=== PATIENT | female | born 1990 | race Caucasian/White ===

== ENCOUNTER 2018-05-24 08:19 | Emergency (ER) | payer BC, MEDICARE ==
[~2018-05-24] VITALS: Ht 157.5 cm; Wt 81.6 kg
[2018-05-24 08:30] VITALS: BP_SYST 151
--- NOTE | 2018-05-24 08:52 | NUR ---
Patient to ER bed 7 to gown for evaluation. Side rails up.
--- NOTE | 2018-05-24 08:54 | NUR ---
ER Dr. Cerrato at bedside examining patient.
--- NOTE | 2018-05-24 08:55 | NUR ---
# 20 gauge angiocath placed to LAC. Use of asceptic technique. Opsite placed over site. Blood return noted. Blood for lab drawn from site. Flushed with 10 cc of normal saline. No evidence of infiltration noted. Patient tolerated well.
--- NOTE | 2018-05-24 09:00 | NUR ---
Pt presents to ER c/o LUQ abdominal pain that radiates to back that began around 0400 today. Pt rates pain 8/10 on pain scale, reports nausea but denies vomiting. Pt also reports that she is 15 weeks . Urine test +. Pt in no acute distress, speaking full sentences, respirations even and unlabored, speaking full sentences, AOX4, family at bedside.
[2018-05-24 09:07] LABS: BILIRUBIN,URINE NEGATIVE (NEGATIVE); BLOOD, URINE 3+ (NEGATIVE); CLARITY/URINE SL HAZY (CLEAR); COLOR,URINE YELLOW (YELLOW); GLUCOSE,URINE NEGATIVE (NEGATIVE); KETONES,URINE NEGATIVE (NEGATIVE); LEUKOCYTE ESTERASE ,URINE 1+ (NEGATIVE); NITRITE, URINE NEGATIVE (NEGATIVE); PROTEIN URINE NEGATIVE (NEGATIVE); UROBILINOGEN,URINE 0.2 (0.2-1.0)
[2018-05-24 09:30] LABS: BACTERIA,URINE FEW /HPF (None Seen); RBC,URINE 20-50 /HPF (0-3)
[2018-05-24 09:31] LABS: MUCUS,URINE 1+ /LPF (None Seen)
[2018-05-24 10:35] VITALS: BP_SYST 136
--- NOTE | 2018-05-24 10:35 | NUR ---
Patient given written and verbal discharge instructions and verbalizes understanding. ER MD discussed with patient the results and treatment provided. Patient in stable condition. ID arm band removed. IV catheter removed intact and dressing applied, no active bleeding. Rx of Macrodantin given. Patient educated on pain management and to follow up with PMD. Pain Scale 0. Opportunity for questions provided and answered. Medication side effect fact sheet provided.
== END 2018-05-24 08:52 | disposition home or self-care (01) ==
LOC: SED 08:19
DX: O23.42 Unspecified infection of urinary tract in pregnancy, second trimester (principal); Z3A.15 15 weeks gestation of pregnancy; Z88.2 Allergy status to sulfonamides; Z88.8 Allergy status to other drugs, medicaments and biological substances
CPT/HCPCS: 81000-TC; 81025; 87086; 99284

== ENCOUNTER 2018-10-31 00:50 | Inpatient (IN) | payer BC, MEDICARE ==
[~2018-10-31] VITALS: Ht 157.5 cm; Wt 84.4 kg
[2018-10-31] MEDS ORDERED: LR 1,000 ML IV SCH (05:12)
[2018-10-31] MEDS ORDERED: NALBUPHINE HCL 10 MG/ML AMP IVP PRN (05:15)
[2018-10-31] MEDS ORDERED: TERBUTALINE SULFATE 1 MG/ML VIAL SUBCUT ONE (05:15)
[2018-10-31 05:26] VITALS: BP_SYST 128
[2018-10-31] MEDS ORDERED: MAGNESIUM SULFATE IN WATER 100 ML IV ONE ×2 (05:30→05:36)
[2018-10-31 05:36] LABS: HEMATOCRIT 30.8 % (36-48); HEMOGLOBIN 10.1 g/dL (12.0-16.0); MEAN CORPUSCULAR HEMOGLOBIN 25 pg (27-31); MEAN CORPUSCULAR HGB CONC 33 % (32-36); MEAN CORPUSCULAR VOLUME 77 fL (79.0-98.0); PLATELET COUNT (AUTO) 223 K/uL (130-430); RED CELL DISTRIBUTION WIDTH 14.6 % (9.0-15.0); WHITE BLOOD COUNT (AUTO) 6.6 K/uL (4.8-10.8)
[2018-10-31] MEDS ORDERED: MAGNESIUM SULFATE IN WATER 500 ML IV ONE (05:36)
[2018-10-31 05:37] LABS: BASOPHILS % (AUTO) 0.4 % (0.0-2.0); EOSINOPHILS # (AUTO) 0.1 K/uL (0.0-0.4); EOSINOPHILS % (AUTO) 0.8 % (0.0-4.0); LYMPHOCYTES # (AUTO) 2.1 K/uL (1.0-5.5); LYMPHOCYTES % (AUTO) 31.6 % (20.5-51.5); MONOCYTES # (AUTO) 0.4 K/uL (0.0-1.0); MONOCYTES % (AUTO) 6.6 % (1.7-9.3); NEUTROPHILS % (AUTO) 60.6 % (40.0-70.0)
[2018-10-31 05:48] LABS: CALCIUM 8.1 mg/dL (8.4-11.0); CREATININE 0.49 mg/dL (0.55-1.30); POTASSIUM 3.7 mmol/L (3.5-5.1)
[2018-10-31 05:53] LABS: ALBUMIN 2.3 g/dL (3.4-4.8); TOTAL BILIRUBIN 0.2 mg/dL (0.0-1.0); URIC ACID 4.3 mg/dL (2.4-7.0)
[2018-10-31 06:23] LABS: INR 0.9 (0.8-1.2); PROTHROMBIN TIME 9.6 SECS (9.5-12.5)
[2018-10-31] MEDS: OXYTOCIN/0.9 % SODIUM CHLORIDE 1,000 ML IV SCH ×2 (06:30→16:45)
[2018-10-31 07:10] LABS: BILIRUBIN,URINE NEGATIVE (NEGATIVE); BLOOD, URINE NEGATIVE (NEGATIVE); CLARITY/URINE SL HAZY (CLEAR); COLOR,URINE YELLOW (YELLOW); GLUCOSE,URINE NEGATIVE (NEGATIVE); KETONES,URINE TRACE (NEGATIVE); LEUKOCYTE ESTERASE ,URINE NEGATIVE (NEGATIVE); NITRITE, URINE NEGATIVE (NEGATIVE); PROTEIN URINE TRACE (NEGATIVE); UROBILINOGEN,URINE 0.2 (0.2-1.0)
[2018-10-31 07:45] LABS: BACTERIA,URINE MODERATE /HPF (None Seen); WBC,URINE 0-3 /HPF (0-3)
[2018-10-31 07:46] LABS: MUCUS,URINE 1+ /LPF (None Seen)
[2018-10-31] MEDS ORDERED: fentaNYL CITRATE/PF 100 MCG/2 ML AMP ONE (09:00)
[2018-10-31] MEDS ORDERED: ROPIVACAINE 0.2% 100 ML ONE (09:01)
[2018-10-31] MEDS: MAGNESIUM SULFATE IN WATER 500 ML IV PRN (16:48)
[2018-10-31] MEDS ORDERED: LR 500 ML IV ONE (17:50)
[2018-10-31] MEDS ORDERED: FENT2mCg/mL-ROPIVA0.2%/NS EPID 150 ML EP SCH (18:00)
[2018-10-31] MEDS ORDERED: OXYTOCIN/0.9 % SODIUM CHLORIDE 1,000 ML IV ONE (19:44)
[2018-10-31] MEDS ORDERED: METHYLERGONOVINE MALEATE 0.2 MG TABLET PO PRN (19:45)
[2018-10-31] MEDS: LABETALOL HCL 100 MG TABLET PO SCH (20:00)
[2018-10-31] MEDS: IBUPROFEN 600 MG TABLET PO SCH (20:00)
[2018-10-31] MEDS ORDERED: LANOLIN 7 GM OINT. TP PRN (20:15)
[2018-10-31] MEDS ORDERED: TEMAZEPAM 15 MG CAPSULE PO PRN (21:00)
[2018-10-31] MEDS ORDERED: OXYCODONE/ACETAMINOPHEN 5-325 TABLET PO PRN ×2 (21:15)
[2018-11-01] MEDS: IBUPROFEN 600 MG TABLET PO SCH ×4 (00:06→18:13)
[2018-11-01] MEDS: DOCUSATE SODIUM 100 MG CAPSULE PO PRN ×2 (00:07→05:47)
[2018-11-01] MEDS: MAGNESIUM SULFATE IN WATER 500 ML IV PRN (05:06)
[2018-11-01 08:23] LABS: HEMATOCRIT 27.4 % (36-48)
[2018-11-01] MEDS: LABETALOL HCL 100 MG TABLET PO SCH ×2 (09:34→21:32)
[2018-11-02] MEDS: DOCUSATE SODIUM 100 MG CAPSULE PO PRN (02:30)
[2018-11-02] MEDS: IBUPROFEN 600 MG TABLET PO SCH ×4 (06:47→23:33)
[2018-11-02] MEDS: LABETALOL HCL 100 MG TABLET PO SCH (11:00)
== END 2018-11-02 23:40 | disposition home or self-care (01) | DRG 560 ==
LOC: OBSVTOIN 00:50 → SPU 00:50 → SMU 11-02 12:24 → SPU 11-02 20:42
PROVIDERS: ADMIT Obstetrics & Gynecology; ATTEND Obstetrics & Gynecology
PROC: 10E0XZZ Delivery of Products of Conception, External Approach (ICD-10-PCS; principal; 2018-10-31)
PROC: 3E0R3BZ Introduction of Anesthetic Agent into Spinal Canal, Percutaneous Approach (ICD-10-PCS; 2018-10-31)
PROC: 00HU33Z Insertion of Infusion Device into Spinal Canal, Percutaneous Approach (ICD-10-PCS; 2018-10-31)
DX: O13.4 Gestational [pregnancy-induced] hypertension without significant proteinuria, complicating childbirth (principal); O69.81X0 Labor and delivery complicated by cord around neck, without compression, not applicable or unspecified; Z37.0 Single live birth; Z3A.38 38 weeks gestation of pregnancy
CPT/HCPCS: 36415; 80053; 81000-TC; 81002-TC; 84550-TC; 85018-TC; 85025; 85384-TC; 85610-TC; 85730-TC; 86592; 86886; 86900; 86901; 94760; J2590; J2795; J3010; J3475; J7120

== ENCOUNTER 2019-09-09 21:04 | Emergency (ER) | payer BC, MEDICAID ==
[~2019-09-09] VITALS: Ht 160 cm; Wt 86.2 kg
[2019-09-09 21:04] VITALS: BP_SYST 150
[2019-09-09 22:21] LABS: BILIRUBIN,URINE NEGATIVE (NEGATIVE); BLOOD, URINE 2+ (NEGATIVE); CLARITY/URINE CLEAR (CLEAR); COLOR,URINE YELLOW (YELLOW); GLUCOSE,URINE NEGATIVE (NEGATIVE); KETONES,URINE NEGATIVE (NEGATIVE); LEUKOCYTE ESTERASE ,URINE NEGATIVE (NEGATIVE); NITRITE, URINE NEGATIVE (NEGATIVE); PH,URINE 6.5 (5.0-8.0); PROTEIN URINE NEGATIVE (NEGATIVE); UROBILINOGEN,URINE 0.2 (0.2-1.0)
[2019-09-09 22:27] LABS: BACTERIA,URINE FEW /HPF (None Seen); MUCUS,URINE None Seen /LPF (None Seen); WBC,URINE 0-3 /HPF (0-3)
[2019-09-09 23:28] LABS: BASOPHILS % (AUTO) 0.5 % (0.0-2.0); EOSINOPHILS % (AUTO) 1.3 % (0.0-4.0); HEMATOCRIT 39.1 % (36-48); HEMOGLOBIN 12.9 g/dL (12.0-16.0); LYMPHOCYTES # (AUTO) 1.3 K/uL (1.0-5.5); MEAN CORPUSCULAR HEMOGLOBIN 27 pg (27-31); MEAN CORPUSCULAR HGB CONC 33 % (32-36); MEAN CORPUSCULAR VOLUME 83 fL (79.0-98.0); MONOCYTES # (AUTO) 0.5 K/uL (0.0-1.0); MONOCYTES % (AUTO) 11.9 % (1.7-9.3); NEUTROPHILS % (AUTO) 53.3 % (40.0-70.0); PLATELET COUNT (AUTO) 213 K/uL (130-430); RED BLOOD CELL COUNT(AUTO) 4.73 MIL/uL (4.2-6.2); RED CELL DISTRIBUTION WIDTH 14.5 % (9.0-15.0); WHITE BLOOD COUNT (AUTO) 3.8 K/uL (4.8-10.8)
[2019-09-09 23:34] LABS: CALCIUM 8.3 mg/dL (8.4-11.0); CREATININE 0.58 mg/dL (0.55-1.30); POTASSIUM 3.5 mmol/L (3.5-5.1)
--- NOTE | 2019-09-10 02:41 | NUR ---
Patient to ER bed 3 to gown for evaluation. Side rails up.
--- NOTE | 2019-09-10 02:45 | NUR ---
Pt came to the ED for vaginal bleeding since 1999. Reports she has been wearing the same pad since bleeding started. LMP was 04/29/19. Reports she has cramping but she is unsure if it is related to the body aches she has been experiences. Pt states her kids have been sick with the flu at home. Reports she has been having body aches, fever, congestion and chills since 10/07/18. Denies n/v/d. Denies SOB or chest pain. No other complaints/injuries noted. Will cont. to monitor
--- NOTE | 2019-09-10 02:50 | NUR ---
ER at bedside examining patient.
--- NOTE | 2019-09-10 03:00 | NUR ---
Dr. Lozano at bedside for pelvic exam with myself as customer service advisor.
[2019-09-10] MEDS ORDERED: ACETAMINOPHEN 500 MG TABLET PO ONE (03:15)
[2019-09-10 03:39] LABS: BARBITURATE, URINE NEGATIVE (NEG <=200); BENZODIAZEPINE, URINE NEGATIVE (NEG <=150); CANNABINOID, URINE NEGATIVE (NEG <=50); COCAINE, URINE NEGATIVE (NEG <=150); METHAMPHETAMINES SCREEN,URINE NEGATIVE (NEG <=500); OPIATE, URINE NEGATIVE (NEG <=100); PHENCYCLIDINE SCREEN,URINE NEGATIVE (NEG <=25); UR TRICYCLIC ANTIDEPRESSANTS NEGATIVE (NEG <=300); URINE AMPHETAMINE POSITIVE (NEG <=500); URINE METHADONE NEGATIVE (NEG <=200); URINE OXYCODONE SCREEN NEGATIVE (NEG <=100); URINE PROPOXYPHENE SCREEN NEGATIVE (NEG <=300)
--- NOTE | 2019-09-10 03:50 | NUR ---
Dr. Lozano at bedside for re-assessing pelvic exam with speculum with myself as a training consultant.
--- NOTE | 2019-09-10 04:54 | NUR ---
ER at bedside discussing lab results to patient.
[2019-09-10 05:00] VITALS: BP_SYST 137
--- NOTE | 2019-09-10 05:00 | NUR ---
Patient given written and verbal discharge instructions and verbalizes understanding. ER MD Dr. Lozano discussed with patient the results and treatment provided. Patient in stable condition. ID arm band removed. Patient educated on pain management and to follow up with PMD. Pain Scale 0/10. Opportunity for questions provided and answered. Medication side effect fact sheet provided.
== END 2019-09-10 05:00 | disposition home or self-care (01) ==
LOC: SED 21:04
DX: O20.0 Threatened abortion (principal); D72.819 Decreased white blood cell count, unspecified; F15.90 Other stimulant use, unspecified, uncomplicated; I10 Essential (primary) hypertension; Z3A.01 Less than 8 weeks gestation of pregnancy; Z88.2 Allergy status to sulfonamides; Z88.8 Allergy status to other drugs, medicaments and biological substances
CPT/HCPCS: 36415; 76856-TC; 80048; 80307; 81000-TC; 84702-TC; 85025; 86710; 86900; 86901; 99284

== ENCOUNTER 2019-09-10 16:11 | Emergency (ER) | payer MEDICAID ==
[~2019-09-10] VITALS: Ht 160 cm; Wt 67.1 kg
[2019-09-10 16:12] VITALS: BP_SYST 146
[2019-09-10] MEDS ORDERED: NACL 0.9% 1,000 ML IV ONE (16:21)
--- NOTE | 2019-09-10 16:21 | NUR ---
Patient called for triage, not in waiting room. Admitting states she was just at their window, will check back.
--- NOTE | 2019-09-10 16:24 | NUR ---
Pt brought by self, A&Ox4, pt presents to ER with vaginal bleeding , states she is 6 weeks , pt was seen last night and was told to return if bleeding continues, per patient bleding is less than yesterday , changing 2 pads a day, skin pink and warm, cap refill <3, VSS, respirations even and unlabored.
--- NOTE | 2019-09-10 16:40 | NUR ---
Dr Aldana at bedside examining patient
[2019-09-10 17:20] LABS: CREATININE 0.61 mg/dL (0.55-1.30); POTASSIUM 3.1 mmol/L (3.5-5.1)
[2019-09-10 17:31] LABS: PROTHROMBIN TIME 9.9 SECS (9.5-12.5)
[2019-09-10 17:32] LABS: BILIRUBIN,URINE 1+ (NEGATIVE); BLOOD, URINE 3+ (NEGATIVE); CLARITY/URINE CLOUDY (CLEAR); GLUCOSE,URINE NEGATIVE (NEGATIVE); KETONES,URINE 1+ (NEGATIVE); LEUKOCYTE ESTERASE ,URINE TRACE (NEGATIVE); NITRITE, URINE NEGATIVE (NEGATIVE); PH,URINE 6.5 (5.0-8.0); PROTEIN URINE 1+ (NEGATIVE)
[2019-09-10 17:34] LABS: BASOPHILS % (AUTO) 0.4 % (0.0-2.0); EOSINOPHILS # (AUTO) 0.1 K/uL (0.0-0.4); EOSINOPHILS % (AUTO) 2.6 % (0.0-4.0); HEMATOCRIT 39.3 % (36-48); LYMPHOCYTES % (AUTO) 28.4 % (20.5-51.5); MEAN CORPUSCULAR HEMOGLOBIN 27 pg (27-31); MEAN CORPUSCULAR HGB CONC 33 % (32-36); MEAN CORPUSCULAR VOLUME 83 fL (79.0-98.0); MONOCYTES # (AUTO) 0.3 K/uL (0.0-1.0); MONOCYTES % (AUTO) 10.1 % (1.7-9.3); NEUTROPHILS % (AUTO) 58.5 % (40.0-70.0); PLATELET COUNT (AUTO) 206 K/uL (130-430); RED BLOOD CELL COUNT(AUTO) 4.76 MIL/uL (4.2-6.2); RED CELL DISTRIBUTION WIDTH 14.9 % (9.0-15.0); WHITE BLOOD COUNT (AUTO) 3.4 K/uL (4.8-10.8)
[2019-09-10 17:48] LABS: ALBUMIN 3.3 g/dL (3.4-4.8); TOTAL BILIRUBIN 0.3 mg/dL (0.0-1.0)
--- NOTE | 2019-09-10 17:55 | NUR ---
Pelvic exam performed by Dr Aldana with myself at bedside for entire examination. Patient tolerated procedure . Patient assisted to position of comfort after examination.
--- NOTE | 2019-09-10 17:55 | NUR ---
Shikha alcazar in ED - 09/10/19 at 1816 by [email or web address] Pelvic exam performed by patient with myself at bedside for entire examination. Patient tolerated procedure . Patient assisted to position of comfort after examination.
[2019-09-10 18:04] LABS: COLOR,URINE AMBER (YELLOW)
[2019-09-10 18:36] LABS: BACTERIA,URINE FEW /HPF (None Seen); RBC,URINE >100 /HPF (0-3)
[2019-09-10 18:37] LABS: MUCUS,URINE 2+ /LPF (None Seen)
[2019-09-10 18:45] VITALS: BP_SYST 142
--- NOTE | 2019-09-10 18:48 | NUR ---
Patient given written and verbal discharge instructions and verbalizes understanding. ER MD discussed with patient the results and treatment provided. Patient in stable condition. ID arm band removed. IV catheter removed intact and dressing applied, no active bleeding. No Rx given. Patient educated on pain management and to follow up with PMD. Pain Scale 0/10 . Opportunity for questions provided and answered. Medication side effect fact sheet provided.
== END 2019-09-10 18:45 | disposition home or self-care (01) ==
LOC: SED 16:11
DX: O20.0 Threatened abortion (principal); I10 Essential (primary) hypertension; Z88.8 Allergy status to other drugs, medicaments and biological substances; Z3A.01 Less than 8 weeks gestation of pregnancy
CPT/HCPCS: 36415; 80053; 81000; 83605; 83690; 84702; 85025; 85610; 85730; 86901; 87040; 87086; 99283; J7030

== ENCOUNTER 2020-07-09 13:45 | Outpatient (CLI) | payer BC, SELFPAY | END 2020-07-09 20:25 | disposition home or self-care (01) | LOC: SLB 13:45 | PROVIDERS: ATTEND Specialist | DX: Z20.828 Contact with and (suspected) exposure to other viral communicable diseases (principal) | CPT/HCPCS: C9803; U0003 ==

== ENCOUNTER 2020-07-14 00:05 | Inpatient (IN) | payer BC, SELFPAY ==
[~2020-07-14] VITALS: Ht 157.5 cm; Wt 83.9 kg
[2020-07-14] MEDS: hydrALAZINE HCL 10 MG TABLET PO SCH (21:15)
[2020-07-15] MEDS: hydrALAZINE HCL 10 MG TABLET PO SCH ×2 (08:54→21:00)
[2020-07-15] MEDS ORDERED: LR 1,000 ML IV ONE (19:15)
[2020-07-15] MEDS ORDERED: TERBUTALINE SULFATE 1 MG/ML VIAL SUBCUT ONE (19:15)
[2020-07-15] MEDS ORDERED: OXYTOCIN/0.9 % SODIUM CHLORIDE 1,000 ML IV SCH (19:15)
[2020-07-15 19:31] LABS: BASOPHILS % (AUTO) 0.2 % (0.0-2.0); EOSINOPHILS # (AUTO) 0.1 K/uL (0.0-0.4); EOSINOPHILS % (AUTO) 0.7 % (0.0-4.0); HEMATOCRIT 33.6 % (36-48); HEMOGLOBIN 11.1 g/dL (12.0-16.0); LYMPHOCYTES # (AUTO) 1.7 K/uL (1.0-5.5); LYMPHOCYTES % (AUTO) 20.3 % (20.5-51.5); MEAN CORPUSCULAR HEMOGLOBIN 25 pg (27-31); MEAN CORPUSCULAR HGB CONC 33 % (32-36); MEAN CORPUSCULAR VOLUME 77 fL (79.0-98.0); MONOCYTES # (AUTO) 0.6 K/uL (0.0-1.0); MONOCYTES % (AUTO) 6.7 % (1.7-9.3); NEUTROPHILS % (AUTO) 72.1 % (40.0-70.0); PLATELET COUNT (AUTO) 250 K/uL (130-430); RED BLOOD CELL COUNT(AUTO) 4.36 MIL/uL (4.2-6.2); RED CELL DISTRIBUTION WIDTH 15.9 % (9.0-15.0); WHITE BLOOD COUNT (AUTO) 8.3 K/uL (4.8-10.8)
[2020-07-15 21:06] VITALS: BP_SYST 123
[2020-07-15] MEDS ORDERED: hydrALAZINE HCL 10 MG TABLET ONE (21:26)
[2020-07-15] MEDS ORDERED: ACETAMINOPHEN 325 MG TABLET PO PRN (23:00)
[2020-07-15] MEDS ORDERED: ACETAMINOPHEN 325 MG TABLET ONE (23:19)
[2020-07-16] MEDS ORDERED: FENT2mCg/mL-ROPIVA0.2%/NS EPID 150 ML EP SCH (05:14)
[2020-07-16] MEDS ORDERED: fentaNYL CITRATE/PF 100 MCG/2 ML AMP ONE (05:14)
[2020-07-16] MEDS ORDERED: ROPIVACAINE HCL/PF 0.2% 200 ML ONE (05:15)
[2020-07-16] MEDS: LR 1,000 ML IV SCH ×2 (06:30→10:15)
[2020-07-16] MEDS: hydrALAZINE HCL 10 MG TABLET PO SCH ×3 (08:59→21:05)
[2020-07-16] MEDS ORDERED: LANOLIN 7 GM OINT. TP PRN (15:00)
[2020-07-16] MEDS ORDERED: WITCH HAZEL LEAF 1 MED.PAD MED.PAD TP PRN (15:00)
[2020-07-16] MEDS ORDERED: METHYLERGONOVINE MALEATE 0.2 MG TABLET PO PRN (15:00)
[2020-07-16] MEDS ORDERED: HYDROcodone/ACETAMIN 5-325 MG TAB (NORCO/ VICODIN) PO PRN (15:00)
[2020-07-16] MEDS ORDERED: RHO(D) IMMUNE GLOBULIN/MALTOSE 1500 UNITS/1.3 ML (WINHRO) IM PRN (15:00)
[2020-07-16] MEDS ORDERED: NALOXONE HCL 0.4 MG/ML AMP (NARCAN) IVP PRN (15:00)
[2020-07-16] MEDS ORDERED: SENNOSIDES/DOCUSATE SODIUM 1 TAB TABLET(SENOKOT-S) PO PRN (15:00)
[2020-07-16] MEDS ORDERED: DERMOPLAST SPRAY TP PRN (15:00)
[2020-07-16] MEDS ORDERED: ANUSOL 1 EA SUPP.RECT (PREPARATION H) RC PRN (15:00)
[2020-07-16] MEDS ORDERED: DIPH-TET-PERTUS Vaccine 0.5 ML VIAL (ADACEL) I.M. PRN (15:00)
[2020-07-16] MEDS ORDERED: OXYTOCIN/0.9 % SODIUM CHLORIDE 1,000 ML IV SCH (15:00)
[2020-07-16] MEDS ORDERED: MEASLES,MUMPS&RUBELLA VACC/PF 12500 UNIT/0.5 ML VIAL SUBQ PRN (15:00)
[2020-07-16] MEDS ORDERED: HYDROCORTISONE 0.5%, 28.35 GM TOPICAL CREAM TP PRN (15:00)
[2020-07-16] MEDS: DOCUSATE SODIUM 100 MG CAPSULE PO PRN ×2 (17:58→23:45)
[2020-07-16] MEDS: IBUPROFEN 600 MG TABLET PO SCH ×2 (17:58→23:45)
[2020-07-16] MEDS ORDERED: TEMAZEPAM 15 MG CAPSULE PO PRN (21:00)
[2020-07-16] MEDS: OXYCODONE/ACETAMINOPHEN 5-325 TABLET PO PRN (22:41)
[2020-07-17] MEDS: OXYCODONE/ACETAMINOPHEN 5-325 TABLET PO PRN ×4 (01:54→17:46)
[2020-07-17] MEDS: IBUPROFEN 600 MG TABLET PO SCH ×3 (06:09→12:24)
[2020-07-17] MEDS: DOCUSATE SODIUM 100 MG CAPSULE PO PRN (06:10)
[2020-07-17 06:42] LABS: BASOPHILS % (AUTO) 0.4 % (0.0-2.0); EOSINOPHILS # (AUTO) 0.1 K/uL (0.0-0.4); EOSINOPHILS % (AUTO) 1.2 % (0.0-4.0); HEMATOCRIT 29.2 % (36-48); HEMOGLOBIN 9.6 g/dL (12.0-16.0); LYMPHOCYTES # (AUTO) 2.7 K/uL (1.0-5.5); LYMPHOCYTES % (AUTO) 33.2 % (20.5-51.5); MEAN CORPUSCULAR HEMOGLOBIN 26 pg (27-31); MEAN CORPUSCULAR HGB CONC 33 % (32-36); MEAN CORPUSCULAR VOLUME 78 fL (79.0-98.0); MONOCYTES # (AUTO) 0.5 K/uL (0.0-1.0); MONOCYTES % (AUTO) 6.4 % (1.7-9.3); NEUTROPHILS # (AUTO) 4.8 K/uL (1.8-7.7); NEUTROPHILS % (AUTO) 58.8 % (40.0-70.0); PLATELET COUNT (AUTO) 208 K/uL (130-430); RED BLOOD CELL COUNT(AUTO) 3.75 MIL/uL (4.2-6.2); RED CELL DISTRIBUTION WIDTH 15.8 % (9.0-15.0); WHITE BLOOD COUNT (AUTO) 8.2 K/uL (4.8-10.8)
[2020-07-17] MEDS: hydrALAZINE HCL 10 MG TABLET PO SCH (11:05)
== END 2020-07-17 18:45 | disposition home or self-care (01) | DRG 807 ==
LOC: SPU 00:05 → UNDOADMOB 00:05 → OBSVTOIN 07-15 18:45 → INTOOBSV 07-15 18:45 → SPU 07-16 17:45
PROVIDERS: ADMIT Specialist; ATTEND Specialist
PROC: 10E0XZZ Delivery of Products of Conception, External Approach (ICD-10-PCS; principal; 2020-07-17)
PROC: 3E0R3BZ Introduction of Anesthetic Agent into Spinal Canal, Percutaneous Approach (ICD-10-PCS; 2020-07-17)
PROC: 00HU33Z Insertion of Infusion Device into Spinal Canal, Percutaneous Approach (ICD-10-PCS; 2020-07-17)
DX: O76 Abnormality in fetal heart rate and rhythm complicating labor and delivery (principal); Z37.0 Single live birth; Z3A.37 37 weeks gestation of pregnancy
CPT/HCPCS: 36415; 76815; 81002-TC; 85025; 86592; 86886; 86900; 86901; 94760; G0378; J2590; J3010; J7120

== ENCOUNTER 2022-05-25 18:25 | Emergency (ER) | payer BC, MEDICAID ==
[~2022-05-25] VITALS: Ht 157.5 cm; Wt 86.2 kg
[2022-05-25 18:38] VITALS: BP_SYST 143
[2022-05-25] MEDS ORDERED: LOSA100T3 PO (18:44)
--- NOTE | 2022-05-25 18:46 | NUR ---
Patient to ER bed 7 to gown for evaluation. Side rails up. Report given to LINDA.
--- NOTE | 2022-05-25 18:46 | NUR ---
CURRENTLT 5 WEEKS LLQ PAIN
--- NOTE | 2022-05-25 19:15 | NUR ---
Patient is awake and alert. Family at bedside. VSS. Abdominal pain stated 01/14 but patient is refusing pain meds at this time. Will conitnue to monitor.
--- NOTE | 2022-05-25 19:30 | NUR ---
ER MD TALAVERA AT BEDSIDE EXAMINING PATIENT.
[2022-05-25 19:33] LABS: BILIRUBIN,URINE NEGATIVE (NEGATIVE); BLOOD, URINE NEGATIVE (NEGATIVE); CLARITY/URINE CLEAR (CLEAR); COLOR,URINE YELLOW (YELLOW); GLUCOSE,URINE NEGATIVE (NEGATIVE); KETONES,URINE NEGATIVE (NEGATIVE); LEUKOCYTE ESTERASE ,URINE NEGATIVE (NEGATIVE); NITRITE, URINE NEGATIVE (NEGATIVE); PROTEIN URINE NEGATIVE (NEGATIVE); UROBILINOGEN,URINE 0.2 (0.2-1.0)
[2022-05-25 19:34] LABS: BASOPHILS % (AUTO) 0.2 % (0.0-2.0); EOSINOPHILS # (AUTO) 0.1 K/uL (0.0-0.4); EOSINOPHILS % (AUTO) 1.4 % (0.0-4.0); HEMATOCRIT 33.9 % (36-48); LYMPHOCYTES # (AUTO) 2.1 K/uL (1.0-5.5); LYMPHOCYTES % (AUTO) 33.7 % (20.5-51.5); MEAN CORPUSCULAR VOLUME 80 fL (79.0-98.0); MONOCYTES # (AUTO) 0.4 K/uL (0.0-1.0); MONOCYTES % (AUTO) 6.1 % (1.7-9.3); NEUTROPHILS # (AUTO) 3.6 K/uL (1.8-7.7); NEUTROPHILS % (AUTO) 58.6 % (40.0-70.0); PLATELET COUNT (AUTO) 259 K/uL (130-430); RED BLOOD CELL COUNT(AUTO) 4.23 MIL/uL (4.2-6.2); WHITE BLOOD COUNT (AUTO) 6.2 K/uL (4.8-10.8)
[2022-05-25 19:41] LABS: CALCIUM 8.3 mg/dL (8.4-11.0); CREATININE 0.76 mg/dL (0.55-1.30); POTASSIUM 3.1 mmol/L (3.5-5.1)
[2022-05-25 19:56] LABS: TOTAL BILIRUBIN 0.2 mg/dL (0.0-1.0)
--- NOTE | 2022-05-25 20:15 | NUR ---
mechanical technician at bedside for U/S, family at bedside during procedure.
--- NOTE | 2022-05-25 20:35 | NUR ---
Ultrasound procedure done, patient tolerated well. Will continue to monitor.
[2022-05-25] MEDS ORDERED: HYDR-4039 PO (20:54)
[2022-05-25 21:10] VITALS: BP_SYST 140
--- NOTE | 2022-05-25 21:10 | NUR ---
Patient given written and verbal discharge instructions and verbalizes understanding. ER MD TALAVERA discussed with patient the results and treatment provided. Patient in stable condition. ID arm band removed. Rx of Apresoline given. Patient educated on pain management and to follow up with PMD. Pain Scale 2/10. Opportunity for questions provided and answered. Medication side effect fact sheet provided.
== END 2022-05-25 21:10 | disposition home or self-care (01) ==
LOC: SED 18:25
DX: O26.891 Other specified pregnancy related conditions, first trimester (principal); I10 Essential (primary) hypertension; Z88.2 Allergy status to sulfonamides; Z88.4 Allergy status to anesthetic agent; Z88.6 Allergy status to analgesic agent; Z91.048 Other nonmedicinal substance allergy status; Z79.899 Other long term (current) drug therapy; Z3A.01 Less than 8 weeks gestation of pregnancy
CPT/HCPCS: 36415; 76801; 76817; 80053; 81003; 81025; 84702; 85025; 99284

== ENCOUNTER 2022-05-28 08:49 | Emergency (ER) | payer MEDICAID ==
[~2022-05-28] VITALS: Ht 157.5 cm; Wt 86.2 kg
[~2022-05-28 08:49] MED LIST: HYDR-4039 PO; LOSA100T3 PO
[2022-05-28 08:50] VITALS: BP_SYST 138
[2022-05-28 10:36] LABS: BILIRUBIN,URINE NEGATIVE (NEGATIVE); BLOOD, URINE NEGATIVE (NEGATIVE); COLOR,URINE YELLOW (YELLOW); GLUCOSE,URINE NEGATIVE (NEGATIVE); KETONES,URINE NEGATIVE (NEGATIVE); LEUKOCYTE ESTERASE ,URINE NEGATIVE (NEGATIVE); NITRITE, URINE NEGATIVE (NEGATIVE); PROTEIN URINE NEGATIVE (NEGATIVE); UROBILINOGEN,URINE 0.2 (0.2-1.0)
[2022-05-28 10:53] LABS: CLARITY/URINE SLIGHTLY CLOUDY (CLEAR)
[2022-05-28 11:41] VITALS: BP_SYST 128
== END 2022-05-28 11:46 | disposition home or self-care (01) ==
LOC: SED 08:49
DX: O26.891 Other specified pregnancy related conditions, first trimester (principal); Z3A.01 Less than 8 weeks gestation of pregnancy
CPT/HCPCS: 36415; 81003; 84702; 99283

== ENCOUNTER 2022-09-03 20:30 | Observation (INO) | payer MEDICAID ==
[~2022-09-03] VITALS: Ht 165.1 cm; Wt 81.6 kg
[2022-09-03] MEDS ORDERED: hydrALAZINE HCL 25 MG TABLET PO ONE (22:45)
== END 2022-09-04 00:02 | disposition home or self-care (01) ==
LOC: SPU 20:30
PROVIDERS: ADMIT Specialist; ATTEND Specialist
DX: O26.892 Other specified pregnancy related conditions, second trimester (principal); R10.9 Unspecified abdominal pain; Z3A.19 19 weeks gestation of pregnancy; W50.0XXA Accidental hit or strike by another person, initial encounter; Y93.89 Activity, other specified; Y92.89 Other specified places as the place of occurrence of the external cause
CPT/HCPCS: 76815; 81002; G0378